=== PATIENT | male | born 1955 | race Caucasian/White ===

== ENCOUNTER 2017-04-12 16:04 | Emergency (ER) | payer OTHER ==
[2017-04-12] MEDS ORDERED: NS 1,000 ML IV ONE (16:08)
[2017-04-12] MEDS ORDERED: LORazepam 2 MG/ML INJ IVP ONE (16:18)
[2017-04-12] MEDS ORDERED: LIDOCAINE 5% 1 EA PATCH TD ONE (16:24)
--- NOTE | 2017-04-12 16:24 | EDPHY ---
H & P Stated Complaint: Pain in lower back secondary to bulging disc. Time Seen by Provider: 04/12/17 16:08 HPI/ROS: CHIEF COMPLAINT: Acute low back pain HISTORY OF PRESENT ILLNESS: The patient presents to the ED by paramedics with acute low back pain. He was bending over putting on his socks when he developed acute pain across his lower lumbar area. The patient reports a history of a herniated disc at an unknown lumbar level diagnosed by MRI years ago. He has had bouts of intermittent back pain since that time. The patient denies any acute numbness or weakness. He denies history of fever. He denies significant past medical history. The patient does have a problem of motion sickness and developed acute nausea and vomiting during his ambulance transport to the hospital. The patient received a total 250 mcg of fentanyl and 8 mg of Zofran prior to arrival. In the ED the patient complains of 5/10 pain across his low back. He denies abdominal pain. He denies any fever. The patient does report ongoing severe nausea and vomiting. REVIEW OF SYSTEMS: A comprehensive 10 point review of systems is otherwise negative aside from elements mentioned in the history of present illness. Source: Patient Exam Limitations: No limitations - Personal History Current Tetanus Diphtheria and Acellular Pertussis (TDAP): Yes - Medical/Surgical History Hx Asthma: No Hx Chronic Respiratory Disease: No Hx Diabetes: No Hx Cardiac Disease: No Hx Renal Disease: No Hx Cirrhosis: No Hx Alcoholism: No Hx HIV/AIDS: No Hx Splenectomy or Spleen Trauma: No Other PMH: Bulging disc in lower back. MCL tear to left knee. - Social History Smoking Status: Never smoked - Physical Exam Exam: General Appearance: Alert, retching, moderate distress secondary to pain Eyes: Pupils equal and round no pallor or injection ENT, Mouth: Mucous membranes moist Respiratory: There are no retractions, lungs are clear to auscultation Cardiovascular: Regular rate and rhythm Gastrointestinal: Abdomen is soft and nontender, no masses, bowel sounds normal Neurological: Alert and oriented x4, 5/5 strength noted bilateral lower extremities, sensation intact to light touch, normal DTRs Skin: Warm and dry, no rashes Musculoskeletal: Neck is supple nontender, tenderness to palpation throughout the lower lumbar area, poorly localized Extremities: Brace on left knee Psychiatric: Patient is oriented X 3, there is no agitation Constitutional: Initial Vital Signs Temperature (C) 36.3 C 04/12/17 16:13 Heart Rate 71 04/12/17 16:13 Respiratory Rate 18 04/12/17 16:13 Blood Pressure 173/68 H 04/12/17 16:13 O2 Sat (%) 98 04/12/17 16:13 O2 Delivery Mode Nasal Cannula Allergies/Adverse Reactions: cephalexin Allergy (Verified 04/12/17 16:15) Home Medications: Medication Instructions Recorded Diazepam [Valium 10 MG (RX)] 10 mg PO TID PRN #20 tab 04/12/17 Lidocaine 5% [Lidoderm 5% Patch 1 ea TD DAILY #12 patch 04/12/17 (*)] methylPREDNISolone [Medrol Dose 1 each PO AD #1 ea 04/12/17 Robles] oxyCODONE/APAP 5/325 [Percocet 1 - 2 tab PO Q6-8PRN PRN #20 tab 04/12/17 5/325 (RX)] Medical Decision Making - Diagnostics Imaging Results: Imaging Impressions Lumbar Spine MRI 04/12/17 16:25 Impression: Multilevel degenerative disk and degenerative joint disease in the lumbar spine. The level of more significant encroachment is L3-L4 where there is moderate right and mild left neural foraminal narrowing. Central protrusion and annular tear at L1-L2 has a more acute appearance with mild to moderate effacement of the anterior thecal sac. Please see detailed description by level above. Results called and discussed with Carlos Alberto Olson MD on April 12, 2017 at 1752 hours. ED Course/Re-evaluation: The patient had an IV established. He received 1 mg of Ativan. He received a L of normal saline secondary to his vomiting and volume depletion. The patient received a lidocaine patch. Given his severe pain and age he was taken for a MRI of the lumbar spine which demonstrates a disc tear at L1-2. The patient has no significant neural foraminal stenosis. The patient has no significant spinal cord stenosis. The patient received an additional 15 mg of IV Toradol. I re-evaluated the patient at 6:40 p.m.. The patient states his pain is feeling much better however he is quite groggy from the Ativan and narcotics he has received. Plan will be for re-observation in 30 minutes. Patient initially had some recurrent nausea with attempted ambulation. He is quite adamant about wanting to go home. He was offered admission to the hospital several times. Patient was reexamined at 8:30 p.m.. He is now able to ambulate. He will be discharged home with prepacks of Ativan and Percocet. He is given customary aftercare instructions and return precautions. Differential Diagnosis: Differential diagnosis considered includes compression fracture, lumbar malignancy, myofascial strain, abdominal aortic aneurysm, disc herniation - Data Points Laboratory Results: Laboratory Results 04/12/17 16:31 04/12/17 16:31 04/12/17 04/12/17 16:31 16:31 WBC 14.15 10^3/uL H 10^3/uL (3.80-9.50) RBC 4.73 10^6/uL 10^6/uL (4.40-6.38) Hgb 16.0 g/dL g/dL (13.7-17.5) Hct 44.7 % % (40.0-51.0) MCV 94.5 fL fL (81.5-99.8) MCH 33.8 pg pg (27.9-34.1) MCHC 35.8 g/dL g/dL (32.4-36.7) RDW 11.8 % % (11.5-15.2) Plt Count 218 10^3/uL 10^3/uL (150-400) MPV 9.2 fL fL (8.7-11.7) Neut % (Auto) 73.4 % % (39.3-74.2) Lymph % (Auto) 17.8 % % (15.0-45.0) [place] % (Auto) 6.3 % % (4.5-13.0) Eos % (Auto) 0.7 % % (0.6-7.6) Baso % (Auto) 0.6 % % (0.3-1.7) Nucleat RBC Rel Count 0.0 % % (0.0-0.2) Absolute Neuts (auto) 10.39 10^3/uL H 10^3/uL (1.70-6.50) Absolute Lymphs (auto) 2.52 10^3/uL 10^3/uL (1.00-3.00) Absolute Monos (auto) 0.89 10^3/uL H 10^3/uL (0.30-0.80) Absolute Eos (auto) 0.10 10^3/uL 10^3/uL (0.03-0.40) Absolute Basos (auto) 0.08 10^3/uL 10^3/uL (0.02-0.10) Absolute Nucleated RBC 0.00 10^3/uL 10^3/uL (0-0.01) Immature Gran % 1.2 % H % (0.0-1.1) Immature Gran # 0.17 10^3/uL H 10^3/uL (0.00-0.10) Sodium 139 mEq/L mEq/L (134-144) Potassium 3.4 mEq/L L mEq/L (3.5-5.2) Chloride 110 mEq/L mEq/L (97-110) Carbon Dioxide 16 mEq/l L mEq/l (22-31) Anion Gap 13 mEq/L mEq/L (8-16) BUN 18 mg/dL mg/dL (7-23) Creatinine 0.9 mg/dL mg/dL (0.7-1.3) Estimated GFR > 60 Glucose 120 mg/dL H mg/dL (70-100) Calcium 8.6 mg/dL mg/dL (8.5-10.4) Medications Given: Discontinued Medications Sodium Chloride (Ns) 1,000 mls @ 0 mls/hr IV EDNOW ONE; Wide Open PRN Reason: Protocol Stop: 04/12/17 16:09 Last Admin: 04/12/17 16:23 Dose: 1,000 mls Ketorolac Tromethamine (Toradol) 15 mg IVP EDNOW ONE Stop: 04/12/17 17:56 Last Admin: 04/12/17 18:09 Dose: 15 mg Lidocaine (Lidoderm 5%) 1 ea TD EDNOW ONE Stop: 04/12/17 16:25 Last Admin: 04/12/17 16:34 Dose: 1 ea Lorazepam (Ativan Injection) 1 mg IVP EDNOW ONE Stop: 04/12/17 16:19 Last Admin: 04/12/17 16:23 Dose: 1 mg Departure - Departure Disposition: Home, Routine, Self-Care Clinical Impression: Lumbar disc herniation Condition: Good Instructions: Lumbar Disc Herniation (ED) Additional Instructions: 1. Take Ibuprofen or Motrin 600 mg by mouth three times a day. 2. Percocet as needed for pain, take a Solu-Medrol which is a steroid for your back pain and inflammation. Zofran as needed for nausea. Valium as needed for muscle relaxation. 3. Please follow up with the pulmonary specialist you have been referred to. 4. Please return to the emergency department for intractable pain, acute numbness, weakness, difficulty with bowel or bladder function. 5. Lidocaine patches as directed for discomfort Referrals: Anthony Merritt MD [Medical Doctor] - As per Instructions Prescriptions: Diazepam [Valium 10 MG (RX)] 10 mg PO TID PRN #20 tab PRN Reason: for spasm Lidocaine 5% [Lidoderm 5% Patch (*)] 1 ea TD DAILY #12 patch methylPREDNISolone [Medrol Dose [place]] 1 each PO AD #1 ea oxyCODONE/APAP 5/325 [Percocet 5/325 (RX)] 1 - 2 tab PO Q6-8PRN PRN #20 tab PRN Reason: for pain
[2017-04-12 16:46] LABS: % IMMATURE GRANULYOCYTES 1.2 % (0.0-1.1); ABSOLUTE IMMATURE GRANULOCYTES 0.17 10^3/uL (0.00-0.10); ADD DIFF? NO; ADD MORPH? NO; ADD SCAN? NO; ATYPICAL LYMPHOCYTE FLAG 0 (0-99); FRAGMENT RBC FLAG 0 (0-99); HEMATOCRIT 44.7 % (40.0-51.0); LEFT SHIFT FLG 10 (0-99); LIPEMIA HEMOLYSIS FLAG 90 (0-99); MEAN CELL HEMOGLOBIN 33.8 pg (27.9-34.1); MEAN CELL HEMOGLOBIN CONCENTR. 35.8 g/dL (32.4-36.7); MEAN CELL VOLUME 94.5 fL (81.5-99.8); MEAN PLATELET VOLUME 9.2 fL (8.7-11.7); PLATELET CLUMPS FLAG 0 (0-99); PLATELET COUNT 218 10^3/uL (150-400); RED BLOOD CELL COUNT 4.73 10^6/uL (4.40-6.38); RED CELL DISTRIBUTION WIDTH 11.8 % (11.5-15.2)
[2017-04-12 17:10] LABS: ANION GAP 13 mEq/L (8-16); CALCIUM 8.6 mg/dL (8.5-10.4); CARBON DIOXIDE 16 mEq/l (22-31); CHLORIDE 110 mEq/L (97-110); CREATININE 0.9 mg/dL (0.7-1.3); GLOMERULAR FILTRATION RATE > 60; GLUCOSE 120 mg/dL (70-100); POTASSIUM 3.4 mEq/L (3.5-5.2); SODIUM 139 mEq/L (134-144)
[2017-04-12] MEDS ORDERED: KETOROLAC 15 MG/1 ML SDV IVP ONE (17:55)
[2017-04-12] MEDS ORDERED: ONDANSETRON 4MG PREPACK#2 BTL TAKEHOME ONE (20:40)
[2017-04-12] MEDS ORDERED: DIAZEPAM 5 MG PREPACK#4 BTL TAKEHOME ONE (20:40)
[2017-04-12] MEDS ORDERED: OXYCODONE/APAP 5/325MG PREPACK#4 BTL TAKEHOME ONE (20:40)
[2017-04-12] MEDS ORDERED: PATCH REMOVAL 1 EA PATCH TD SCH (21:00)
[2017-04-12 21:40] VITALS: RESP 18; TEMP 97.5
[2017-04-12 21:41] VITALS: BP 115/81; PULSE 75; O2SAT 98
== END 2017-04-12 21:42 | disposition home or self-care (01) ==
LOC: EDUNIT#
DX: M51.26 Other intervertebral disc displacement, lumbar region (principal); E86.9 Volume depletion, unspecified
CPT/HCPCS: 96374; J1885; J2060

== ENCOUNTER 2017-11-05 09:11 | Day surgery (SDC) | payer OTHER ==
--- NOTE | 2017-11-05 09:32 | CPEKG ---
Heart Rate: 73 RR Interval: 822 P-R Interval: 156 QRSD Interval: 94 QT Interval: 404 QTC Interval: 446 P Bovina: 69 QRS Bovina: 100 T Wave Bovina: 53 EKG Severity - OTHERWISE NORMAL ECG - EKG Impression: SINUS ARRHYTHMIA, RATE 54-80 EKG Impression: RIGHT AXIS DEVIATION Electronically Signed By: Ashleigh Jonhston 07-Nov-2017 15:16:12
[2017-11-05] MEDS ORDERED: ONDANSETRON 4 MG/2 ML VIAL IVP ONE (09:48)
--- NOTE | 2017-11-05 10:18 | EDPHY ---
HPI/HX/ROS/PE/MDM Narrative: CHIEF COMPLAINT: Abdominal pain HPI: The patient is a 62 y/o male with a history of GERD and diverticulosis complaining of abdominal pain onset this morning. He describes upper abdominal pain in a band across his abdomen and sometimes localized to his epigastrium that radiates to his back. He has chronic back pain and has had a cough for a few months and has difficulty discerning between this discomfort and his pain today. He reports two episodes of non-bloody vomiting this morning. He denies bloody or black stools, fever, diarrhea, recent trauma. He notes he recently restarted Prilosec after a one-month hiatus due to continuing GERD symptoms. He has a prior hernia repair, but no other abdominal surgeries. REVIEW OF SYSTEMS: Aside from elements discussed in the HPI, a comprehensive 10-point review of systems was reviewed and is negative. PMH: GERD, diverticulosis/itis (? patient is unsure), chronic back pain, rib fractures SOCIAL HISTORY: Lives in [place]. . Employed. PCP: Dr. Vail PHYSICAL EXAM: General:Patient is alert, in no acute distress. ENT:Eyes are normal to inspection. ENT inspection normal. Neck: Normal inspection. Full range of motion. Respiratory:No respiratory distress. Breath sounds normal bilaterally. Cardiovascular: Regular rate and rhythm. Strong peripheral pulses. Normal cap refill. Abdomen:The abdomen has mild to moderate diffuse tenderness to palpation. There are no peritoneal signs. Back: Normal to inspection. No tenderness to palpation. Skin: Normal color. No rash. Warm and dry. Extremities: Normal appearance. Full range of motion. Neuro: Oriented x3. Normal motor function. Normal sensory function. ED Course: This is a 62 y/o male with a history of GERD and either diverticulosis or diverticulitis who presents with a few-hour history of lower abdominal pain and two episodes of vomiting. He has [id number] diffuse abdominal tenderness to palpation. Plan for IV, labs, EKG, abdominal CT, and symptom management. 4mg IV Zofran ordered. Patient declined pain medication. The 12 lead EKG was interpreted by myself. See hard copy and/or "tracemaster" electronic copy for interpretation. WBC elevated at 17. Abdominal CT: acute appendicitis 1302: Consulted with Dr. Nielsen, surgeon. He will admit patient. - Data Points Laboratory Results: Laboratory Results 03/29/18 09:35 11/05/17 09:35 11/05/17 11/05/17 09:35 09:35 WBC 17.09 10^3/uL H 10^3/uL (3.80-9.50) RBC 5.18 10^6/uL 10^6/uL (4.40-6.38) Hgb 17.3 g/dL g/dL (13.7-17.5) Hct 47.5 % % (40.0-51.0) MCV 91.7 fL fL (81.5-99.8) MCH 33.4 pg pg (27.9-34.1) MCHC 36.4 g/dL g/dL (32.4-36.7) RDW 11.6 % % (11.5-15.2) Plt Count 234 10^3/uL 10^3/uL (150-400) MPV 9.5 fL fL (8.7-11.7) Neut % (Auto) 85.6 % H % (39.3-74.2) Lymph % (Auto) 8.0 % L % (15.0-45.0) [place] % (Auto) 5.4 % % (4.5-13.0) Eos % (Auto) 0.2 % L % (0.6-7.6) Baso % (Auto) 0.4 % % (0.3-1.7) Nucleat RBC Rel Count 0.0 % % (0.0-0.2) Absolute Neuts (auto) 14.64 10^3/uL H 10^3/uL (1.70-6.50) Absolute Lymphs (auto) 1.37 10^3/uL 10^3/uL (1.00-3.00) Absolute Monos (auto) 0.92 10^3/uL H 10^3/uL (0.30-0.80) Absolute Eos (auto) 0.03 10^3/uL 10^3/uL (0.03-0.40) Absolute Basos (auto) 0.06 10^3/uL 10^3/uL (0.02-0.10) Absolute Nucleated RBC 0.00 10^3/uL 10^3/uL (0-0.01) Immature Gran % 0.4 % % (0.0-1.1) Immature Gran # 0.07 10^3/uL 10^3/uL (0.00-0.10) Sodium 142 mEq/L mEq/L (135-145) Potassium 3.8 mEq/L mEq/L (3.5-5.2) Chloride 108 mEq/L mEq/L (97-110) Carbon Dioxide 17 mEq/l L mEq/l (22-31) Anion Gap 17 mEq/L H mEq/L (8-16) BUN 21 mg/dL mg/dL (7-23) Creatinine 1.0 mg/dL mg/dL (0.7-1.3) Estimated GFR > 60 Glucose 110 mg/dL H mg/dL (70-100) Calcium 9.2 mg/dL mg/dL (8.5-10.4) Troponin I < 0.012 ng/mL ng/mL (0.000-0.034) Medications Given: Discontinued Medications Ondansetron HCl (Zofran) 4 mg IVP EDNOW ONE Stop: 11/05/17 09:49 Last Admin: 11/05/17 09:53 Dose: 4 mg General Time Seen by Provider: 11/05/17 09:57 Initial Vital Signs: Initial Vital Signs Heart Rate 78 11/05/17 09:17 Respiratory Rate 16 11/05/17 09:17 Blood Pressure 153/85 H 11/05/17 09:17 O2 Sat (%) 99 11/05/17 09:17 O2 Delivery Mode Room Air Allergies/Adverse Reactions: cephalexin Allergy (Verified 04/12/17 16:15) Home Medications: Medication Instructions Recorded NK [No Known Home Meds] 11/05/17 Departure - Departure Disposition: [facility] Inpatient Acute Clinical Impression: Acute appendicitis Qualifiers: Acute appendicitis type: other Qualified Code(s): K35.89 - Other acute appendicitis Condition: Fair Referrals: Hesham Vail MD [Primary Care Provider] - As per Instructions Report Scribed for: Myles Bustamante Report Scribed by: Erna Verma Date of Report: 11/05/17 Time of Report: 10:18 Physician Review and Approval Statement: Portions of this note were transcribed by an ED scribe. I personally performed the history, physical exam, and medical decision making; and confirm the accuracy of the information in the transcribed note.
[2017-11-05 10:52] LABS: PLATELET COUNT 234 10^3/uL (150-400)
[2017-11-05] MEDS ORDERED: IOPAMIDOL (ISOVUE-300) 100 ML BTL ONE (11:48)
[2017-11-05] MEDS ORDERED: BUPIVACAINE 0.25% 30 ML SDV ONE (15:14)
[2017-11-05] MEDS ORDERED: ERTAPENEM 1 GM VIAL IV ONE (15:20)
[2017-11-05] MEDS ORDERED: SCOPOLAMINE HYDROBROMIDE 1 MG/3 DAYS PATCH TD ONE ×2 (15:23→15:26)
--- NOTE | 2017-11-05 15:25 | PDANEPAE ---
ANE History of Present Illness 62 year old with appendicytis ANE Past Medical History Past Medical History: negative - Cardiovascular History Hx Hypertension: No Hx Arrhythmias: No Hx Chest Pain: No Hx Coronary Artery / Peripheral Vascular Disease: No Hx CHF / Valvular Disease: No Hx Palpitations: No - Pulmonary History Hx COPD: No Hx Asthma/Reactive Airway Disease: No Hx Recent Upper Respiratory Infection: No Hx Oxygen in Use at Home: No Hx Sleep Apnea: No - Neurologic History Hx Cerebrovascular Accident: No Hx Seizures: No Hx Dementia: No - Endocrine History Hx Diabetes: No - Renal History Hx Renal Disorders: No - Liver History Hx Hepatic Disorders: No - Neurological & Psychiatric Hx Hx Neurological and Psychiatric Disorders: No - Cancer History Hx Cancer: No - Congenital Disorder History Hx Congenital Disorders: No - GI History Hx Gastrointestinal Disorders: No - Chronic Pain History Chronic Pain: No - Surgical History Prior Surgeries: Hernia 20 yrs ago? ANE Review of Systems Review of Systems: mild cough - Exercise capacity METS (RN): 4 METS ANE Patient History - Allergies Allergies/Adverse Reactions: cephalexin Allergy (Verified 11/05/17 13:38) Hives - Home Medications Home medications: home medication list seen and reviewed Home Medications: Ibuprofen [Motrin (*)] 200 mg PO DAILY PRN 11/05/17 [Last Taken Unknown] Omeprazole 20 mg PO DAILY 11/05/17 [Last Taken 11/04/17] - NPO status NPO Since - Liquids (Date): 11/04/17 NPO Since - Liquids (Time): 20:30 NPO Since - Solids (Date): 11/04/17 NPO Since - Solids (Time): 20:30 - Anes Hx Anes Hx: no prior problems - Smoking Hx Smoking Status: Never smoked - Family Anes Hx Family Hx Anesthesia Complications: not aware of any ANE Labs/Vital Signs - Labs Result Diagrams: 11/05/17 09:35 11/05/17 09:35 - Vital Signs Blood Pressure: 149/90 Heart Rate: 80 Respiratory Rate: 16 O2 Sat (%): 97 Height: 180.34 cm Weight: 77.111 kg ANE Physical Exam - Airway Neck exam: FROM Mallampati Score: Class 1 Mouth exam: normal dental/mouth exam - Pulmonary Pulmonary: no respiratory distress - Cardiovascular Cardiovascular: regular rate and rhythym - ASA Status ASA Status: II ANE Anesthesia Plan Anesthesia Plan: general endotracheal anesthesia
[2017-11-05] MEDS ORDERED: SCOPOLAMINE HYDROBROMIDE 1 MG/3 DAYS PATCH TD SCH (15:30)
[2017-11-05] MEDS ORDERED: PROPOFOL 200 MG/20 ML VIAL ONE (15:41)
[2017-11-05] MEDS ORDERED: fentaNYL 100 MCG/2 ML INJ ONE (15:41)
[2017-11-05] MEDS ORDERED: LR 1,000 ML IV ONE (15:42)
--- NOTE | 2017-11-05 15:43 | PDGENHP ---
History and Physical - Chief Complaint abd pain - History of Present Illness 62 y/o male with abd pain starting this AM, associated with nausea Patient was seen in the ED by Dr. 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 Review of Systems Review of Systems: Cardiac: Reports: no symptoms Respiratory: Reports: cough (chronic past several years, thought to be related to GERD) Gastrointestinal: Reports: abdominal pain, abdominal distention, nausea Genitourinary: Reports: no symptoms Muscolosketal: Reports: no symptoms Physical Exam Physical Exam: Temp Pulse Resp BP Pulse Ox 36.6 C 80 16 149/90 H 97 11/05/17 14:37 11/05/17 15:25 11/05/17 15:25 11/05/17 15:25 11/05/17 15:25 Constitutional: no apparent distress Ears, Nose, Mouth, Throat: moist mucous membranes Cardiovascular: regular rate and rhythym, no murmur, rub, or gallop Respiratory: no rales or rhonchi, clear to auscultation Gastrointestinal: normoactive bowel sounds, tenderness (RLQ with guarding/no mass/Rovsing's negative) Skin: warm Neurologic: AAOx3 Lab Data & Imaging Review 11/05/17 09:35 11/05/17 09:35 WBC 17.09 10^3/uL (3.80-9.50) H 11/05/17 09:35 RBC 5.18 10^6/uL (4.40-6.38) 11/05/17 09:35 Hgb 17.3 g/dL (13.7-17.5) 11/05/17 09:35 Hct 47.5 % (40.0-51.0) 11/05/17 09:35 MCV 91.7 fL (81.5-99.8) 11/05/17 09:35 MCH 33.4 pg (27.9-34.1) 11/05/17 09:35 MCHC 36.4 g/dL (32.4-36.7) 11/05/17 09:35 RDW 11.6 % (11.5-15.2) 11/05/17 09:35 Plt Count 234 10^3/uL (150-400) 11/05/17 09:35 MPV 9.5 fL (8.7-11.7) 11/05/17 09:35 Neut % (Auto) 85.6 % (39.3-74.2) H 11/05/17 09:35 Lymph % (Auto) 8.0 % (15.0-45.0) L 11/05/17 09:35 [place] % (Auto) 5.4 % (4.5-13.0) 11/05/17 09:35 Eos % (Auto) 0.2 % (0.6-7.6) L 11/05/17 09:35 Baso % (Auto) 0.4 % (0.3-1.7) 11/05/17 09:35 Nucleat RBC Rel Count 0.0 % (0.0-0.2) 11/05/17 09:35 Absolute Neuts (auto) 14.64 10^3/uL (1.70-6.50) H 11/05/17 09:35 Absolute Lymphs (auto) 1.37 10^3/uL (1.00-3.00) 11/05/17 09:35 Absolute Monos (auto) 0.92 10^3/uL (0.30-0.80) H 11/05/17 09:35 Absolute Eos (auto) 0.03 10^3/uL (0.03-0.40) 11/05/17 09:35 Absolute Basos (auto) 0.06 10^3/uL (0.02-0.10) 11/05/17 09:35 Absolute Nucleated RBC 0.00 10^3/uL (0-0.01) 11/05/17 09:35 Immature Gran % 0.4 % (0.0-1.1) 11/05/17 09:35 Immature Gran # 0.07 10^3/uL (0.00-0.10) 11/05/17 09:35 Sodium 142 mEq/L (135-145) 11/05/17 09:35 Potassium 3.8 mEq/L (3.5-5.2) 11/05/17 09:35 Chloride 108 mEq/L (97-110) 11/05/17 09:35 Carbon Dioxide 17 mEq/l (22-31) L 11/05/17 09:35 Anion Gap 17 mEq/L (8-16) H 11/05/17 09:35 BUN 21 mg/dL (7-23) 11/05/17 09:35 Creatinine 1.0 mg/dL (0.7-1.3) 11/05/17 09:35 Estimated GFR > 60 11/05/17 09:35 Glucose 110 mg/dL (70-100) H 11/05/17 09:35 Calcium 9.2 mg/dL (8.5-10.4) 11/05/17 09:35 Troponin I < 0.012 ng/mL (0.000-0.034) 11/05/17 09:35 Visualized and Interpreted imaging results: Yes Interpretation: mild inflammation of appendix, no appendicolith, no fluid/free air Assessment & Plan Assessment: Acute appendicitis (Acute) Plan: WE discussed lap appendectomy vs. antibiotics I recommended lap appendectomy as he has no contraindications to surgery. We discussed suregy, expected recover and risks. informed consent was obtained.
[2017-11-05] MEDS ORDERED: HYDROmorphONE/DILAUDID 2 MG/ML INJ ONE (16:16)
[2017-11-05] MEDS: PROMETHAZINE HCL 25 MG/ML INJ IVP PRN ×2 (16:52→17:44)
[2017-11-05] MEDS ORDERED: PROMETHAZINE HCL 25 MG/ML INJ ONE (16:54)
[2017-11-05] MEDS ORDERED: HYDROCODONE/APAP 5/325 TAB PO PRN (16:56)
[2017-11-05] MEDS ORDERED: NALOXONE HCL 0.4 MG/ML INJ IVP PRN (16:56)
[2017-11-05] MEDS ORDERED: MEPERIDINE 25 MG/ML SYR IVP PRN (16:56)
[2017-11-05] MEDS ORDERED: oxyCODONE IR 5 MG TAB PO PRN (16:56)
--- NOTE | 2017-11-05 16:58 | POSTANESTH ---
Post Anesthetic Evaluation Cardiovascular Status: Normal, Stable, Tx Over/Under Hydration Level of Consciousness/Mental Status: Can Participate in Eval Pain Control: Adequate, Prn Tx Ordered Nausea/Vomiting Control: Inadeq, Add Tx Reqired
--- NOTE | 2017-11-05 17:01 | POSTOPPROG ---
Post Op Note Date of Operation: 11/05/17 Surgeon: Emeterio Nielsen (, FACS) Anesthesiologist: Nirmal Bal MD Anesthesia: GET(General Endotracheal) Pre-op Diagnosis: appendicitis Post-op Diagnosis: same Procedure: lap appendectomy Findings: early acute appendicitis Inf/Abcess present in the surg proc area at time of surgery?: Yes Depth: Organ Space EBL: Minimal (25 ml) Complications: none Specimen(s): appendix
[2017-11-05 17:30] VITALS: TEMP 97.5
--- NOTE | 2017-11-05 17:49 | GOP ---
[f rep st] OPERATIVE REPORT DATE OF OPERATION: 11/05/2017 SURGEON: Emeterio Nielsen MD, FACS ANESTHESIA: General endotracheal. ANESTHESIOLOGIST: Nirmal Bal MD. PREOPERATIVE DIAGNOSIS: Acute appendicitis. POSTOPERATIVE DIAGNOSIS: Acute appendicitis. PROCEDURE PERFORMED: Laparoscopic appendectomy. FINDINGS: Retrocecal appendix with acute inflammation, excised and submitted for permanent section. A few adhesions between the ascending colon and anterior abdominal wall as well as the sigmoid colon and anterior abdominal wall. No evidence of recurrent inguinal hernia. ESTIMATED BLOOD LOSS: 25 mL. DESCRIPTION OF PROCEDURE: After informed consent was obtained, the patient was brought to the operating room and placed under general anesthesia. The abdomen was prepped and draped in usual fashion. Before proceeding, a time-out and identification the patient was performed. 0.25% Marcaine was used to infiltrate all incision sites. A prior infraumbilical incision was utilized for an access port. The incision was re- incised transversely. Ventral traction was applied to the abdominal wall with penetrating towel clamp and a Veress needle was introduced into the peritoneal cavity and position confirmed by saline infusion. A pneumoperitoneum was established with CO2 gas to a pressure of 15 mmHg. The Veress needle was withdrawn and replaced with a 5 mm bladeless trocar. A 30-degree scope was introduced and the peritoneal cavity was visualized. There were no significant anterior abdominal wall adhesions, although there were few adhesions between the ascending colon and anterior abdominal wall and the sigmoid colon and anterior abdominal wall, both along the pelvic sidewall. Evidence of a prior laparoscopic inguinal hernia repair was noted without evidence of recurrence. An additional 5 mm port was placed in the suprapubic position and a 12 mm left lower quadrant port was established, both under direct visualization. This allowed introduction of atraumatic grasping forceps. The appendix was not readily visible after rotating the cecum medially as well as the terminal ileum. The peritoneum was incised lateral to the cecum and the cecum and terminal ileum mobilized until the appendix was visualized in its retrocecal position. The appendix was then grasped by the base. The mesoappendix was taken down with the Harmonic Scalpel and the appendix from the cecum with a single firing of the HILTON stapler. The appendix was retrieved through the left lower quadrant port site. The operative field was irrigated and hemostasis appeared secure. The left lower quadrant port site was closed with a transfascial closure needle and 0 Vicryl suture. The pneumoperitoneum was evacuated. The subcutaneous tissues were approximated with 3-0 Vicryl suture and the skin of all incisions closed with 4-0 Monocryl suture in a subcuticular fashion. Topical Dermabond was applied. Patient was returned to the recovery room in satisfactory condition. Needle, sponge, and instrument counts were correct. COMPLICATIONS: None. /[id number]/MODL MTDD
[2017-11-05 18:42] VITALS: BP 129/94
[2017-11-05 18:55] VITALS: PULSE 72; RESP 17; O2SAT 100
[2017-11-05] MEDS ORDERED: SENNOSIDES/DOCUSATE SODIUM TAB PO SCH (21:00)
[2017-11-05] MEDS ORDERED: ACETAMINOPHEN 500 MG TAB PO SCH (22:00)
[2017-11-05] MEDS ORDERED: IBUPROFEN 600 MG TAB PO SCH (22:00)
[2017-11-08] MEDS ORDERED: PATCH REMOVAL 1 EA PATCH TD SCH (15:21)
== END 2017-11-05 19:12 | disposition home or self-care (01) ==
LOC: UNDOADMOB 13:04 → FSGY 14:41
PROVIDERS: ATTEND Surgery
PROC: 0DTJ4ZZ Resection of Appendix, Percutaneous Endoscopic Approach (ICD-10-PCS; principal; 2017-11-05 19:45)
DX: K35.80 Unspecified acute appendicitis (principal); K21.9 Gastro-esophageal reflux disease without esophagitis
CPT/HCPCS: 96374; J1170; J1335; J2405; J2550; J2704; J3010; Q9967

== ENCOUNTER → 2018-07-19 | Outpatient (CLI) | payer OTHER | LOC: FIMAGING 16:08 | PROVIDERS: ATTEND Internal Medicine | DX: R10.12 Left upper quadrant pain (principal); R11.2 Nausea with vomiting, unspecified ==

== ENCOUNTER → 2018-07-23 | Outpatient (CLI) | payer OTHER ==
[~2018-07-23] MED LIST: IOPAMIDOL (ISOVUE-300) 100 ML BTL ONE
== END ==
LOC: FIMAGING 09:17
PROVIDERS: ATTEND Internal Medicine
DX: K57.32 Diverticulitis of large intestine without perforation or abscess without bleeding (principal); I70.8 Atherosclerosis of other arteries
CPT/HCPCS: Q9967